=== PATIENT | male | born 1980 | race Two or more races ===

== ENCOUNTER 2017-02-08 13:42 | Emergency (ER) | payer BC ==
[~2017-02-08] VITALS: Ht 182.9 cm; Wt 105.9 kg
[2017-02-08 15:08] LABS: BLOOD UREA NITROGEN 12 mg/dL (7-18); HEMATOCRIT 54.1 % (39.2-51.8); HEMOGLOBIN 18.8 g/dL (13.7-18.0); WHITE BLOOD COUNT 8.5 x10^3/uL (3.4-10)
[2017-02-08 15:12] LABS: IS PT STATUS REG ER OR PRE ER? YES
[2017-02-08 16:09] VITALS: BP 141/90
== END 2017-02-08 17:49 | disposition home or self-care (01) ==
LOC: ED 17:30
DX: D75.1 Secondary polycythemia (principal)
CPT/HCPCS: 36415; 80048; 82040; 84484; 85025; 85379; 85610; 85730; 93005; 99285